=== PATIENT | male | born 1955 | race Caucasian/White ===

== ENCOUNTER → 2022-06-22 14:58 | Outpatient (BNVA) | payer MEDICARE, OTHER, SELFPAY | PROVIDERS: PCP Internal Medicine; Visit Provider Internal Medicine | DX: R10.12 Left upper quadrant pain (principal); K86.1 Other chronic pancreatitis; G90.9 Disorder of the autonomic nervous system, unspecified; F43.10 Post-traumatic stress disorder, unspecified | CPT/HCPCS: 99202 ==

== ENCOUNTER 2022-07-08 06:10 | Outpatient (REF) | payer MEDICARE, OTHER, SELFPAY | END 2022-07-08 06:11 | disposition home or self-care (01) | LOC: CF 06:10 | PROVIDERS: Visit Provider Internal Medicine | DX: G90.9 Disorder of the autonomic nervous system, unspecified (principal); K86.1 Other chronic pancreatitis; F43.10 Post-traumatic stress disorder, unspecified | CPT/HCPCS: 64510; J1100 ==

== ENCOUNTER → 2022-08-07 09:56 | Outpatient (BNVA) | payer MEDICARE, OTHER, SELFPAY | PROVIDERS: PCP Internal Medicine; Visit Provider Internal Medicine | DX: M54.16 Radiculopathy, lumbar region (principal) | CPT/HCPCS: 99212 ==

== ENCOUNTER 2022-08-12 06:14 | Outpatient (REF) | payer MEDICARE, OTHER, SELFPAY ==
--- NOTE | ~2022-08-12 | FL_ITS ---
EXAMINATION: XR FLUOROSCOPY WITH IMAGES CLINICAL INFORMATION: Disorder of the autonomic nervous system, unspecified. COMPARISON: None available. TECHNIQUE: Fluoroscopy Supervised By: Dr. Ricci. Fluoroscopy Time: 0.6 minutes. Cumulative Dose: 15.6 mGy. DAP: Gycm2. Images: 6. FINDINGS: Images demonstrate probe placement and contrast injection adjacent to the right lateral L3, L4 and L5 vertebrae. FL/FL guidance in treatment room IMPRESSION: Fluoroscopy guidance for pain management procedure.
== END 2022-08-12 06:15 | disposition home or self-care (01) ==
LOC: CF 06:14
PROVIDERS: Visit Provider Internal Medicine
DX: G90.9 Disorder of the autonomic nervous system, unspecified (principal); M54.16 Radiculopathy, lumbar region
CPT/HCPCS: 64483; 64484; J1100

== ENCOUNTER 2022-09-18 09:33 | Outpatient (AMB) | payer MEDICARE, OTHER, SELFPAY ==
[2022-09-18 09:47] VITALS: BP 120/70; PULSE 68; RESP 16; O2SAT 96; BMI 30.5
--- NOTE | 2022-09-18 09:47 | MHC.OFFVIS ---
Intake Vital Signs 09/18/22 09:47 Height 5 ft 10 in Weight 212 lb 8 oz BMI 30.5 BP 120/70 Blood Pressure Location Lt brachial Position Sitting Respiration 16 Pulse 68 Pulse Source Pulse Oximeter Pulse Oximetry (%) 96 Oxygen Delivery Method Room Air Intake Visit Reasons: s/p Right L2-L3, L3-L4 TFESI Allergies shellfish derived Adverse Reaction (Severe, Verified 09/18/22 09:46) n/v HPI s/p Right L2-L3, L3-L4 TFESI HPI Details 67-year-old male presenting today for a status post right L2-L3, L3-L4 TFESI. He reports 90% relief in his back and leg symptoms on the right side. He is continuing to walk on a rubber surface as well as continuing core strengthening exercises. He is planning on starting to swim as well. In terms of his autonomic symptoms, he reports that his sweating episodes have decreased from 6 per night to 2 per night since the stellate ganglion block. His abdominal pain has improved and he is no longer debilitated. Overall he is quite pleased with his current status. Past procedures: 08/12/22: Transforaminal epidural steroid injection, Right L3/4, L4/5: 90% relief. 07/08/2022: Ultrasound Guided Stellate Ganglion Block, Left: Significant reduction in facial and upper extremity dysautonomic symptoms. PFSH Medical History Abnormal cardiovascular stress test Basal cell carcinoma of left lower leg Benign prostatic hyperplasia without lower urinary tract symptoms Chronic pancreatitis Depression Diverticulitis Elevated TSH Generalized anxiety disorder History of actinic keratoses History of basal cell carcinoma History of dysplastic nevus Hyperlipidemia Major depressive disorder, recurrent severe without psychotic features Papilloma of oral cavity PTSD (post-traumatic stress disorder) Sciatica, left side Skin lesion of left lower limb Snoring Special screening for malignant neoplasms, colon Vegan diet Review of Systems Const All systems reviewed & are unremarkable except as noted in HPI and below Physical Exam Vital Signs: Last Vital Signs Pulse 68 09/18/22 09:47 Resp 16 09/18/22 09:47 BP 120/70 09/18/22 09:47 Pulse Ox 96 09/18/22 09:47 Oxygen Delivery Method Room Air 09/18/22 09:47 BMI result Body Mass Index 30.5 General: Appears afebrile. Alert and oriented. Mood and affect appropriate. Follows and participates in conversation appropriately. Respiratory effort is unlabored. Able to transition from sit to stand unassisted. Ambulates with bilaterally normal heel strike and toe off. Results Reviewed Results Reviewed: No imaging is available for review. Assessment & Plan Assessment & Plan (1) Lumbar radiculopathy: Code(s): M54.16 - Radiculopathy, lumbar region (2) Autonomic dysfunction: Code(s): G90.9 - Disorder of the autonomic nervous system, unspecified (3) PTSD (post-traumatic stress disorder): Code(s): F43.10 - Post-traumatic stress disorder, unspecified Plan 1. Continue home exercise program with core stretching and strengthening as tolerated for lumbar radicular symptoms. Follow-up for repeat injection as needed. 2. We will plan to repeat stellate ganglion block if and when his autonomic symptoms worsen again. If his abdominal symptoms worsen, we can consider celiac plexus block. But at this time I am leaning towards repeating stellate ganglion block as needed given significant improvement in his autonomic symptoms since that injection. Scribed for Dr. Ricci by Petr Desai, medical billing specialist, on 09/18/2022. I, Dr. Ricci, have personally reviewed and agree with the information entered by the scribe. Coding Level of Care Code Est Pt Level 3 (50527) Diagnoses Lumbar radiculopathy M54.16 Autonomic dysfunction G90.9 PTSD (post-traumatic stress disorder) F43.10
== END 2022-09-18 10:25 | disposition home or self-care (01) ==
PROVIDERS: PCP Internal Medicine; Visit Provider Internal Medicine
DX: M54.16 Radiculopathy, lumbar region (principal); G90.9 Disorder of the autonomic nervous system, unspecified; F43.10 Post-traumatic stress disorder, unspecified
CPT/HCPCS: 99213

== ENCOUNTER → 2022-09-18 09:33 | Outpatient (BNVA) | payer MEDICARE, OTHER, SELFPAY | PROVIDERS: PCP Internal Medicine; Visit Provider Internal Medicine | DX: M54.16 Radiculopathy, lumbar region (principal); G90.9 Disorder of the autonomic nervous system, unspecified; F43.10 Post-traumatic stress disorder, unspecified | CPT/HCPCS: 99212 ==

== ENCOUNTER 2024-08-24 10:56 | Outpatient (AMB) | payer MEDICARE, OTHER, SELFPAY ==
--- NOTE | 2024-08-24 11:04 | MHC.OFFVIS ---
Intake Visit Reasons: results Allergies shellfish derived Adverse Reaction (Severe, Verified 09/18/22 09:46) n/v HPI Comments Details: 69 yo man with left side thorax area sharp pain since about 2020 suggestive of a radiculapathy. THere was no rash or blisters. There was no h/o trauma triggering it. But he had played football in young age and had injured his mid back. He said that around the time this pain started, he was getting vaccines for Covid and Shingles, in 2019. This pain was there all the time but less so during the day. It could get so bad that he did want to live with it. It was waking him up at night. He also has mild MARICHUY and could not sleep on his back due to it. [facility] Medical History (Updated 08/24/24 @ 11:13 by Ovidio Garcia MD) Hypothyroidism Peroneal neuropathy Tarsal tunnel syndrome Peripheral neuropathy Chronic pancreatitis Diverticulitis Vegan diet Basal cell carcinoma of left lower leg Snoring Abnormal cardiovascular stress test Benign prostatic hyperplasia without lower urinary tract symptoms Elevated TSH Major depressive disorder, recurrent severe without psychotic features PTSD (post-traumatic stress disorder) Generalized anxiety disorder History of actinic keratoses Papilloma of oral cavity Skin lesion of left lower limb History of dysplastic nevus History of basal cell carcinoma Depression Hyperlipidemia Special screening for malignant neoplasms, colon Sciatica, left side Social History (Updated 08/23/24 @ 14:12 by Crissy Fuchs MA) Patient Tobacco Use Status: Current everyday Tobacco user Physical Exam Neuro Other: Mental Status: Alert and oriented to person, place, and time. Normal attention. Normal spontaneous speech, fluency, and comprehension. No obvious issues with mood and memory. Affect is appropriate. Cranial Nerves: CN II: Visual almazan full to confrontation, visual acuity intact. CN III, IV, : Pupils equal, round, reactive to light and accommodation. Extraocular movements are normal. CN V: Facial sensation is normal. CN VII: Facial movements symmetrical. CN VIII: Hearing intact to bedside conversation is normal. CN IX, X: Palate elevates symmetrically. CN XI: Shoulder shrug and head turn symmetrical. CN XII: Tongue midline without atrophy or fasciculations. Motor: Bulk and tone normal in all extremities. No significant muscle weakness in arms and legs. No drift. Reflexes: Deep tendon reflexes 2+ and symmetric. Plantar response down-going bilaterally. Coordination: Mafcnk-ez-csgv and gwde-ci-xwuk testing normal. No dysmetria. Gait and Station: No obvious gait abnormality. No ataxia or instability. Sensory: Intact to light touch, pinprick, and vibration. Romberg is negative. Extrapyramidal: Full facial expressions and blinking. No rigidity. Movements are appropriate with no tremor or abnormality. Speech: Normal; no dysarthria or tremor. Assessment & Plan Assessment & Plan (1) Thoracic radiculitis: Comment: Meds Tried: Gabapentin MRI T spine WO at [facility] in July 2024: Mild DJD, and multilevel foraminal stenoses Code(s): M54.14 - Radiculopathy, thoracic region Category: Medical (2) Peroneal neuropathy: Comment: EMG/NCS at [facility] in Sep 2015: Mild to mod b/l distal tibial neuropathy across TT, mild b/l peroneal neuropathy. Code(s): G57.30 - Lesion of lateral popliteal nerve, unspecified lower limb Category: Medical Qualifiers: Laterality: unspecified laterality Qualified Code(s): G57.30 - Lesion of lateral popliteal nerve, unspecified lower limb (3) Tibial neuropathy, bilateral: Code(s): G57.43 - Lesion of medial popliteal nerve, bilateral lower limbs Category: Medical Plan Left-sided midthoracic area neuralgia type of pain syndrome likely related to spondylitic changes in spine. He was educated about it and was advised to try tizanidine 1 dose at night. Medications: New tizanidine 2 mg PO BEDTIME PRN 30 caps 0RF muscle spasticity 30 days Coding Level of Care Code Est Pt Level 4 (12469) Diagnoses Thoracic radiculitis M54.14 Peroneal neuropathy, unspecified laterality G57.30 Laterality: unspecified laterality Tibial neuropathy, bilateral G57.43
--- OUTSIDE RECORDS SUMMARY | 2024-08-24 11:46 | XMS_ITS | Clinical Summary ---
Author Organization [facility] Address [address] [place] [address] Care Team Providers Care Electrode Cleaning Machine Operator Name Role Phone Nate Anaya MD Primary Care Provider [phone] Allergies No known active allergies Medications Medication Sig Dispensed Refills Start Date End Date Status albuterol (ProAir HFA) 108 (90 Base) MCG/ACT inhaler Inhale into the lungs. 0 05/29/2015 Active hydrOXYzine (ATARAX) 25 MG tablet Take 25 mg by mouth 3 (three) times a day as needed. for anxiety 0 05/19/2021 Active simvastatin (ZOCOR) tablet 20 mg Take 20 mg by mouth every night at bedtime. 0 06/05/2021 Active terbinafine (LamiSIL) 250 MG tablet Take 250 mg by mouth daily. 0 07/03/2021 Active Active Problems Problem Noted Date Diagnosed Date Night sweats 08/01/2021 Abdominal discomfort in left flank 08/01/2021 Family History Medical History Relation Name Comments Cancer Maternal Uncle Heart disease Mother Relation Name Status Comments Father Maternal Uncle Mother Social History Tobacco Use Types Packs/Day Years Used Date Smoking Tobacco: Former Cigarettes Q uit: 11/22/2020 Smokeless Tobacco: Never Comments:quit 11/2020 Alcohol Use Standard Drinks/Week Comments Not Currently 0 (1 standard drink = 0.6 oz pur e alcohol) Sex and Gender Information Value Date Recorded Sex Assigned at Not on file Gender Identity Not on file Sexual Orientation Not on file Job Start Date Occupation Industry Not on file Not on file Not on file Last Filed Vital Signs Vital Sign Reading Time Taken Comments Blood Pressure 113/74 08/01/2021 2:19 PM EDT Pulse 63 08/01/2021 2:19 PM EDT Temperature 36.7 C (98.1 F) 08/01/2021 2:19 PM EDT Respiratory Rate - - Oxygen Saturation 97% 08/01/2021 2:1 9 PM EDT Inhaled Oxygen Concentration - - Weight 94 kg (207 lb 3.2 oz) 08/01/2021 2:19 PM EDT Height 177.8 cm (5' 10 ) 08/01/2021 2:1 9 PM EDT patient preffered with shoes Body Mass Index 29.73 08/01/2021 2:19 PM EDT Plan of Treatment Health Maintenance Due Date Last Done Comments Hepatitis C Screening 1957 Depression Screening 1969 Preventative Health Evaluation 06/05/1975 Colon Cancer Screening (Colonoscopy) 2002 DTap / Tdap / Td (2 - Td or Tdap) 03/16/2021 03/16/2011 Fall Risk Assessment 2022 Pneumococcal Vaccine (1 of 1 - PCV) 2022 COVID-19 Vaccine (4 - season) 2023 12/11/2020, 05/19/2020, 04/28/2020 Influenza Vaccine (Season Ended) 2024 11/27/2020, 12/12/2018, 11/16/2017, Additional history exists RSV Adult > 60+ Yrs or (1 - 1-dose 75+ series) 2032 Shingrix-Zoster Vaccine Completed 03/14/2021, 12/11 Hepatitis B Vaccines Aged Out No long er eligible based on patient's age to complete this topic RSV Ped < 20 months Aged Out No longe r eligible based on patient's age to complete this topic Care Teams Electrode Cleaning Machine Operator Relationship Specialty Start Date End Date Nate Anaya MD PCP - General Internal Medicine 06/05/21
== END 2024-08-24 11:16 | disposition home or self-care (01) ==
LOC: HO.HSM 10:57
PROVIDERS: PCP Internal Medicine; Visit Provider Psychiatry & Neurology Neurology
DX: M54.14 Radiculopathy, thoracic region (principal); G57.30 Lesion of lateral popliteal nerve, unspecified lower limb; G57.43 Lesion of medial popliteal nerve, bilateral lower limbs
CPT/HCPCS: 99214

== ENCOUNTER → 2024-08-24 10:56 | Outpatient (BNVA) | payer MEDICARE, OTHER, SELFPAY | PROVIDERS: PCP Internal Medicine; Visit Provider Psychiatry & Neurology Neurology | DX: M54.14 Radiculopathy, thoracic region (principal); G57.30 Lesion of lateral popliteal nerve, unspecified lower limb; G57.43 Lesion of medial popliteal nerve, bilateral lower limbs | CPT/HCPCS: 99212 ==

== ENCOUNTER 2024-12-07 11:29 | Outpatient (AMB) | payer MEDICARE, OTHER, SELFPAY ==
--- NOTE | 2024-12-07 11:30 | MHC.OFFVIS ---
Intake Visit Reasons: 3m/radiculopathy Allergies shellfish derived Adverse Reaction (Severe, Verified 09/18/22 09:46) n/v HPI Comments Details: 69 yo man, under stress from his 's dementia, has been treated for chronic urticaria, was seen for left side thorax area sharp pain since about 2020 suggestive of a radiculapathy. He is presenting with complaints of persistent itching and gastrointestinal discomfort. The onset of the itching coincided with either a COVID-19 vaccination or infection, leading to self-treatment with diphenhydramine initially and subsequent management with hydroxyzine for three years. Upon discontinuation, the patient experienced a resurgence of symptoms, now improved. Gastrointestinal issues focus on inflammation sans H. pylori infection, potentially linked to dietary habits, such as high coffee intake. Stress related to familial issues, particularly a spouse's dementia, is noted as a possible contributory factor. [facility] Medical History (Updated 12/07/24 @ 11:36 by Ovidio Garcia MD) Hypothyroidism Peroneal neuropathy Tarsal tunnel syndrome Peripheral neuropathy Chronic pancreatitis Diverticulitis Vegan diet Basal cell carcinoma of left lower leg Snoring Abnormal cardiovascular stress test Benign prostatic hyperplasia without lower urinary tract symptoms Elevated TSH Major depressive disorder, recurrent severe without psychotic features PTSD (post-traumatic stress disorder) Generalized anxiety disorder History of actinic keratoses Papilloma of oral cavity Skin lesion of left lower limb History of dysplastic nevus History of basal cell carcinoma Depression Hyperlipidemia Special screening for malignant neoplasms, colon Sciatica, left side Social History (Updated 08/23/24 @ 14:12 by Crissy Fuchs MA) Patient Tobacco Use Status: Current everyday Tobacco user Review of Systems Const Details: - Monitor for exacerbation of itching and gastrointestinal discomfort. - Reduce coffee intake and observe any improvement in gastrointestinal symptoms. - Be mindful of stress levels, especially related to caregiving for a spouse with dementia. - Return for further evaluation if symptoms do not improve or worsen. Physical Exam Neuro Other: Mental Status: Alert and oriented to person, place, and time. Normal attention. Normal spontaneous speech, fluency, and comprehension. No obvious issues with mood and memory. Affect is appropriate. Cranial Nerves: CN II: Visual almazan full to confrontation, visual acuity intact. CN III, IV, : Pupils equal, round, reactive to light and accommodation. Extraocular movements are normal. CN V: Facial sensation is normal. CN VII: Facial movements symmetrical. CN VIII: Hearing intact to bedside conversation is normal. CN IX, X: Palate elevates symmetrically. CN XI: Shoulder shrug and head turn symmetrical. CN XII: Tongue midline without atrophy or fasciculations. Extrapyramidal: Full facial expressions and blinking. No rigidity. Movements are appropriate with no tremor or abnormality. Speech: Normal; no dysarthria or tremor. Assessment & Plan Assessment & Plan (1) Thoracic radiculitis: Comment: Meds Tried: Gabapentin, hydroxyzine, MRI T spine WO at [facility] in July 2024: Mild DJD, and multilevel foraminal stenoses Code(s): M54.14 - Radiculopathy, thoracic region Category: Medical Plan 69 years old man under stress from his 's illness, chronic urticaria, which apparently started after COVID, treated with hydroxyzine, was here for chronic left midthoracic radicular type of pain syndrome. At this time, after stopping hydroxyzine, he was feeling better though symptoms were not completely resolved. He was reassured and educated and no medicine was prescribed at this time. Coding Level of Care Code Est Pt Level 4 (67998) Diagnoses Thoracic radiculitis M54.14
--- OUTSIDE RECORDS SUMMARY | 2024-12-07 14:00 | XMS_ITS | Encounter Summary ---
Author Organization [facility] Address [address] [place] [address] Care Team Providers Care Golf Cart Mechanic Name Role Phone Nate Anaya MD Primary Care Provider [phone] Reason for Visit * Therapy (Routine) - Authorized Specialty Diagnoses / Procedures Referred By Contac t Referred To Contact Pulmonology Diagnoses Chronic cough Wheezing Procedures Pulmonary function testing: Carbon Monoxide Diffusing Capacity, Flow Volume Loop, Helium Dilution Lung Volumes, Nitrogen Wash Out, Spirometry with Bronchodilator, Vital Capacity Test, Spirometry Rikki He MD [address] [place] [phone] Phone: tel: fax: Pulmonology [address] [phone] Phone: tel: fax: Referral ID Status Reason Start Date Expiration Date V isits Requested Visits Authorized [id number] Authorized 11/02/2024 11/02/2025 1 1 Encounter Details Date Type Department Care Team ([facility] st Contact Info) Description 12/07/2024 2:00 PM EDT Ancillary Procedure Pulmonology [address] [phone] Chronic cough; Wheezing Social History Tobacco Use Types Packs/Day Years Used Date Smoking Tobacco: Former Cigarettes Q uit: 11/22/2021 Smokeless Tobacco: Never Alcohol Use Standard Drinks/Week Comments No 0 (1 standard drink = 0.6 oz pur e alcohol) Housing Instability Answer Date Recorde d Are you worried that in the next 2 months you may not have stable housing? No 12/23/2023 Food Access & Nutrition Answer Date Rec orded Do you have access to a vari ety of food including fruits and vegetables? Yes 12/23/2023 Access to Healthcare Answer Date Record ed Within the last 3 months, ho w many times did you visit the emergency department for your medical care? 0 12/23/2023 Health Literacy Answer Date Recorded How often do you need to hav e someone help you when you read instructions, pamphlets, or other written material from your doctor or pharmacy? Never 12/23/2023 Caregiver: How often do you need to have someone help you when you read instructions, pamphlets, or other written material from your doctor or pharmacy? Not on file 12/23/2023 Financial Risk Answer Date Recorded How hard is it for you to pa y for the very basics like food, housing, medical care, and air conditioning / heating? Not very hard 12/23/2023 Transportation Answer Date Recorded Has the lack of transportati on kept you from meetings, work, or from getting things needed for daily living? No Has the lack of transportati on kept you from medical appointments or from getting medications? No 12/23/2023 Social Isolation Answer Date Recorded How often do you feel lonely or isolated from th ose around you? Never 12/23/2023 Food Risk Answer Date Recorded Within the past 12 months we worried whether our food would run out before we got money to buy more. Never true 12/23/2023 Within the past 12 months th e food we bought just didn't last and we didn't have money to get more. Never true 12/23/2023 Dependent Care Answer Date Recorded Do you need help finding or paying for care for your loved ones. For example, childcare teacher or elderly care for an older adult? No 12/23/2023 Education Answer Date Recorded Do you think completing more education or training, like finishing a GED, going to college, or learning a trade, would be helpful for you? No 12/23/2023 Employment and Income Answer Date Recor ded During the last four weeks, have you been actively looking for work? No 12/23/2023 Living Situation Answer Date Recorded What is your living situation? Unrecognized valu e 12/23/2023 Sex and Gender Information Value Date Recorded Sex Assigned at Not on file Legal Sex Male 2:02 PM EST Gender Identity Male 12/23/2023 1:19 PM EDT Sexual Orientation Straight 12/23/2023 1: 19 PM EDT documented as of this encounter Progress Notes * Tee Hidalgo - 12/07/2024 2:00 PM EDT PFT performed documented in this encounter Plan of Treatment Upcoming Encounters Date Type Department Care Team (Late st Contact Info) Description 01/11/2025 4:30 PM EST Office Visit Adult Medicine [address] [phone] Nate Anaya MD [address] [place] [address] documented as of this encounter Visit Diagnoses Diagnosis Chronic cough Cough Wheezing documented in this encounter Orders PFT Count Last Ordered Date First Orde red Date PULMONARY FUNCTION TESTING 1 12/07/2024 documented in this encounter Additional Health Concerns Assessment Noted Time PHQ-9 Depression Total Score: 3 12/23/19 24 1:39 PM EDT documented as of this encounter Care Teams Golf Cart Mechanic Relationship Specialty Start Date End Date Nate Anaya MD [address] [place] [address] PCP - General Internal Medicine 12/28/23 documented as of this encounter
--- OUTSIDE RECORDS SUMMARY | 2024-12-07 14:48 | XMS_ITS | Encounter Summary ---
Author Organization [facility] Address [address] [facility] [address] [place] [phone] Phone Care Team Providers Care Product Applications Engineer Name Role Phone Pcp, Unknown Primary Care Provider Unavailabl e Encounter Details Date Type Department Care Team (Late st Contact Info) Description 08/19/2023 Transcribe Orders [facility] [address] [place] [address] Keely Desir, [facility] [address] [facility], [facility] [address] [place] [address] [email or web address] Social History Tobacco Use Types Packs/Day Years Used Date Smoking Tobacco: Never Assessed Education Answer Date Recorded Are you interested in more education? Not on mariza e 08/19/2023 Are you concerned about learning? Not on file 08/19/2023 No 08/19/2023 No 08/19/2023 Digital Access Answer Date Recorded No 08/19/2023 No 08/19/2023 Reliable internet access at home? Not on file 08/19/2023 Device with a working camera? Not on file Sex and Gender Information Value Date Recorded Sex Assigned at Not on file Legal Sex Male 12:12 PM EDT Gender Identity Not on file Sexual Orientation Not on file documented as of this encounter Plan of Treatment Not on file documented as of this encounter Visit Diagnoses Not on filedocumented in this encounter Care Teams Product Applications Engineer Relationship Specialty Start Date End Date Pcp, Unknown PCP - General 08/19/23 documented as of this encounter Additional Source Comments The information contained in this document represents components of the legal health record. It is not the complete legal health record.[facility]
--- OUTSIDE RECORDS SUMMARY | 2024-12-07 14:48 | XMS_ITS ---
Author Name [facility] Organization Unknown Care Team Organization Name Specialty Phone Email Start Date End Da te [facility] ACO 10/11/2024 [facility] 02/03/202309/22
--- OUTSIDE RECORDS SUMMARY | 2024-12-07 14:48 | XMS_ITS | Clinical Summary ---
Author Organization [facility] Address [address] [place] [phone] Phone Care Team Providers Care Double Bass Player Name Role Phone Pcp, Unknown Primary Care Provider Unavailabl e Social History Tobacco Use Types Packs/Day Years [...] on file Sexual Orientation Not on file Plan of Treatment Not on file Medical Devices Not on file Insurance MED[place] PART A [place] [id number] [facility] MEDICARE SUPPLEMENT MEDICARE PART A & B [facility] [employer] MEDICARE SUPPLEMENT MEDICARE PART A & B [facility] MEDICARE SUPPLEMENT MEDICARE PART A & B [facility] MEDICARE SUPPLEMENT MEDICARE PART A & B Member Subscriber Plan / Payer (Ef fective 2022-Present) Name:Etienne Calderón Member ID:[id number] Relation to Subscriber:Self Name:Stephane Etienne Subscriber ID:[id number] Payer ID:[id number] Group ID:Not on file Type:Medicare Address: [employer] [address] [employer] MEDICARE SUPPLEMENT MEDICARE PART A & B [facility] [employer]TENSION MEDICARE SUPPLEMENT Care Teams Double Bass Player Relationship Specialty Start Date End Date Pcp, Unknown PCP - General 08/19/23 Additional Source Comments The information contained in this document represents components of the legal health record. It is not the complete legal health record.[facility]
--- OUTSIDE RECORDS SUMMARY | 2024-12-07 14:49 | XMS_ITS | Clinical Summary ---
Author Organization [facility] Address [address] [place] [address] Care Team Providers Care Director [employer] Name Role Phone Nate Anaya MD Primary Care Provider [phone] Allergies No known active allergies Medications Medication [...] PCV) 2022 COVID-19 Vaccine (4 - season) 2024 12/11/2020, 05/19/2020, 04/28/2020 Influenza Vaccine (#1) 2024 , 12/12/2018, 11/16/2017, Additional history exists RSV Adult > 60+ Yrs or (1 - 1-dose 75+ series) 2032 Shingrix-Zoster Vaccine Completed 03/14/2021, 12/11 Hepatitis B Vaccines Aged Out No long er eligible based on patient's age to complete this topic RSV Ped < 20 months Aged Out No longe r eligible based on patient's age to complete this topic Care Teams Director [employer] Relationship Specialty Start Date End Date Nate Anaya MD PCP - General Internal Medicine 06/05/21
--- OUTSIDE RECORDS SUMMARY | 2024-12-07 14:49 | XMS_ITS | Clinical Summary ---
Author Organization [address] Address [address] [place] [phone] Phone Care Team Providers Care Pilot Plant Research Technician Name Role Phone Nate Anaya MD Primary Care Provider [phone] Allergies Active Allergy Reactions Criticality Noted Date Comments Fish Derived 11/02/2024 Shellfish Derived Nausea And Vomiting 2 Medications levocetirizine (XYZAL) 5 mg tablet ONE TAB DAILY MAY TAKE UP TO THREE TIMES A DAY IF NEEDED *MAX 1 TAB DAILY 4 Active levothyroxine (SYNTHROID, LEVOTHROID) 50 mcg tabletIndication s:Hypothyroidism , unspecified TAKE 1 TABLET DAILY WEDNESDAY- Y. TAKE 2 TABLETS WEDNESDAY. TOTAL OF 8 TABS/WEEK 102 tablet 3 5 Active simvastatin (ZOCOR) 20 mg tablet TAKE 1 TABLET (20 MG TOTAL) BY MOUTH AT BEDTIME. AT BEDTIME. 90 tablet 1 5 Active albuterol HFA (ProAir HFA) 90 mcg/actuation inhalerIndicatio ns:Upper respiratory tract infection, unspecified type Inhale 2 puffs by mouth every 4 (four) hours if needed for wheezing or shortness of breath. 8.5 g 5 10/17/19 26 Active Active Problems Problem Noted Date Diagnosed Date Hypothyroidism 08/06/2022 Diverticulosis 06/09/2021 Overview (12/06/2023): Seen on CT Abdomen 04/2021 Chronic pancreatitis ([facility] V24, [facility] V28) 06/09/2021 Overview (12/06/2023): Seen on CT of the abdomen April 2021. Basal cell carcinoma of left lower leg 0 Snoring 01/17/2018 Overview (12/06/2023): 12/2017 Home Sleep Study did not reveal sleep apnea. 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 Skin lesion of left lower limb 03/16/2011 Depression 11/07/2010 Hyperlipidemia 01/12/2010 Backache 01/09/2008 Overview (12/06/2023): IMO update Encounters Date Type Department Care Team Description 12/07/2024 2:00 PM EDT Ancillary Procedure Pulmonology - [place] [address] [phone] Chronic cough; Wheezing 11/02/2024 1:00 PM EDT Office Visit Pulmonology [address] [phone] Rikki He MD MARICHUY (obstructive sleep apnea) (Primary Dx); Chronic cough; Wheezing 11/02/2024 Telephone Pulmonology [address] [phone] Kasie Mckenna MA 10/16/2024 1:21 PM EDT - 10/16/2024 11:59 PM EDT [facility] [address] [place] [phone] Discharge Disposition: Home or Self Care 10/16/2024 1:15 PM EDT Office Visit Walk-In Clinic [facility] [address] [place] [phone] Jered Martins, SHAY Upper respiratory tract infection, unspecified type (Primary Dx); Productive cough 10/16/2024 Nurse Triage Adult Medicine [address] [phone] Nate Anaya MD from Last 3 Months Immunizations Immunization Administration Dates Next Due Influenza Quadravalent, MDCK , 0.5ml, preservative free (Flucelvax) 6mo and older 12/25/2021,11/17/2019 Influenza Quadravalent, MDCK , 0.5ml, with preservative (Flucelvax) 6mo and older 11/16/2017 Influenza trivalent, 0.5mL ( Fluad) 65yo and older 12/08/2022,12/12/2018,02/08/2015,2013,01/09/2013 Influenza trivalent, 0.5mL ( Fluzone High-dose) 65yo and older 10/20/2024 Influenza trivalent, 0.5mL, preservative free (Fluarix; FluLaval; Fluzone) ages 6mo and older (Afluria) 3 years and older 11/27/2020 Influenza, Unspecified 11/04/2023,12/25/2021 Moderna SARS-CoV-2 COVID-19, mRNA, LNP-S, preservative free 11/04/2023 Pfizer (ages 12 & older) Biv alent, COVID-19 11/07/2021 Pneumococcal conjugate 20 va lent (Prevnar 20, PCV 20) 2mo and older 08/06/2022 RSV, bivalent, protein subun it RSVpreF, 0.5mL, Preservative Free (Arexvy) 50yo and older 01/21/2023 Tdap Tetanus diptheria acell ular pertussis (Boostrix; Adacel) 7yo and older 04/07/2022,03/16/2011 Zoster recombinant (Shingrix ) 19yo and older 03/14/2021,12/11/2020 Surgical History Surgery Date Site/Laterality Comments COLONOSCOPY 05/04/2008 PROCEDURE: IL COLONOSCOPY FLX DX W/COLLJ SPEC WHEN PFRMD; COMMENT: Normal APPENDECTOMY PROCEDURE: HISTORICAL APPENDECTOMY TONSILLECTOMY PROCEDURE: HISTORICAL TONSILLECTOMY NECK SURGERY PROCEDURE: HISTORICAL NECK SURGERY; COMMENT: exploration for a bulge in neck, muscular OTHER SURGICAL HISTORY PROCEDURE: IL EXCISION MAL LESION TRUNK/ARM/LEG 0.6-1.0 CM MOLE REMOVAL PROCEDURE: HISTORICAL MOLE (REMOVAL OF); COMMENT: Dysplastic nevus 01/02 back (mild atypia) OTHER SURGICAL HISTORY PROCEDURE: HISTORICAL CA BASAL CELL; COMMENT: BCC 06/11 left pretibial area (superficial and sclerosing) 01/04 left shoulder (superficial) 01/02 left foot (superficial) Medical History Medical History Date Comments Backache, unspecified 01/09/2008 DX:Backach e, unspecified Tobacco abuse 01/09/2008 DX:Tobacco abuse Special screening for malign ant neoplasms, colon 05/04/2008 DX:Special screening for mal ignant neoplasms, colon; COMMENT: Negative colonoscopy 05/04/2008, no colon cancer screening needed for 10 years. Hyperlipidemia 01/12/2010 DX:Hyperlipidemi a Depression 11/07/2010 DX:Depression History of basal cell carcinoma 01/14/2011 DX:History of basal cell carcinoma; COMMENT: BCC 06/11 left pretibial area (superficial and sclerosing) 01/04 left shoulder (superficial) 01/02 left foot (superficial) History of dysplastic nevus 01/14/2011 DX:H istory of dysplastic nevus; COMMENT: Dysplastic nevus 01/02 back (mild atypia) History of actinic keratoses 02/07/2015 DX: History of actinic keratoses; COMMENT: Actinic keratosis Mast cell disorder DX:Mast cell disorder Joint pain DX:Joint pain Family History Medical History Relation Name Comments CABG Father parkinsons; dec eased Hypertension Mother Other Dermatological Disorders Mother description of scars suggest non-melanotic cutaneous malignancies on her face ..... specifics unknown Esophageal cancer Uncle mother Relation Name Status Comments Father Mother Uncle Social History Tobacco Use Types Packs/Day Years Used Date Smoking Tobacco: Former Cigarettes Q uit: 11/22/2021 Smokeless Tobacco: Never Tobacco Cessation:Counseling Given: Not Answered Alcohol Use Standard Drinks/Week Comments No 0 [...] care for your loved ones. For example, child care sitter or elderly care for an older adult? [...] Orientation Straight 12/23/2023 1: 19 PM EDT Obstetrics History Last Filed Vital Signs Vital Sign Reading Time Taken Comments Blood Pressure 104/73 11/02/2024 1:14 PM EDT Pulse 68 11/02/2024 1:14 PM EDT Temperature 36.1 C (97 F) 10/16/2024 1:09 PM EDT Respiratory Rate 20 11/02/2024 1:14 PM EDT Oxygen Saturation 98% 11/02/2024 1:14 PM EDT Inhaled Oxygen Concentration - - Weight 90.7 kg (200 lb) 11/02/2024 1:14 PM EDT Height 180.3 cm (5' 11 ) 11/02/2024 1:14 PM EDT Body Mass Index 27.89 11/02/2024 1:14 PM EDT Plan of Treatment Upcoming Encounters Date Type Department Care Team (Late st Contact Info) Description 01/11/2025 4:30 PM EST Office Visit Adult Medicine [address] [phone] Nate Anaya MD [address] [place] [phone] Health Maintenance Due Date Last Done Comments Medicare Annual Wellness Visit 01/31/2022 Falls Risk Assessment 2022 Depression Screening 02/23/2024 12/23/2023, 06/03/19 24 COVID-19 Vaccine ( season) 2024 11/04/2023, 11/13/2022, 11/07/2021, Additional history exists Social Influencers of Health Screening 12/22/2024 12/23/2023 Lung Cancer Screening (Low Dose CT) 08/14/2025 08/14/2024, 08/06/2023, 08/10/2022, Additional history exists Cholesterol Screening (Lipid Panel) 05/29/2029 05/29/2024, 06/03/2023 Colorectal Cancer Screening: Colonoscopy 07/19/2031 07/18/2021 DTaP,Tdap,and Td Vaccines (3 - Td or Tdap) 04/07/2032 04/07/2022, 03/16/2011 Zoster Vaccines Completed 03/14/2021, 12/11/2020 Hepatitis C Screening Completed 05/12/2021 Pneumococcal Vaccine: 50+ Years Completed 08/06/2022 RSV Immunization Adult Patients Completed 01/21/2023 Abdominal Aortic Aneurysm (AAA) Screen Completed 02/10/2023, 02/10/2023 Influenza Vaccine Completed 10/20/2024, , 12/08/2022, Additional history exists HIB Vaccines Aged Out No longer eligi ble based on patient's age to complete this topic HPV Vaccines Aged Out No longer eligi ble based on patient's age to complete this topic Hepatitis A Vaccines Aged Out No long er eligible based on patient's age to complete this topic Hepatitis B Vaccines Aged Out No long er eligible based on patient's age to complete this topic IPV Vaccines Aged Out No longer eligi ble based on patient's age to complete this topic MMR Vaccines Aged Out No longer eligi ble based on patient's age to complete this topic Meningococcal ACWY Vaccine Aged Out N o longer eligible based on patient's age to complete this topic Meningococcal B Vaccine Aged Out No l onger eligible based on patient's age to complete this topic RSV Immunization Patients Under 20 months Aged Out No longer eligible based on patient's age to complete this topic Varicella Vaccines Aged Out No longer eligible based on patient's age to complete this topic Procedures Procedure Name Priority Date/Time Associated Diagnosis Comments XR CHEST 2 VIEWS STAT 10/16/2024 1:26 PM EDT Productive cough CT LUNG SCREENING Routine 08/14/2024 7:4 0 AM EDT Encounter for screening for malignant neoplasm of respiratory organs Personal history of nicotine dependence LIPID PANEL WITH REFLEX TO DIRECT LDL Routine 05/29/2024 9:04 AM EDT Pure hypercholesterolemia HM DEPRESSION SCREENING Routine 06/03/2023 US ABDOMINAL AORTA REAL TIME SCREEN STUDY AAA Routine 02/10/2023 8:04 AM EST Encounter for screening for cardiovascular disorders COLONOSCOPY Routine 07/18/2021 HEPATITIS C SCREENING Routine 05/12/2021 from Last 3 Months or Most Recently Relevant to Health Maintenance Results * XR Chest 2 Views (10/16/2024 1:26 PM EDT) Anatomical Region Laterality Modality Body Radiographic Hue ging 10/16/2024 1:37 PM EDT Impressions 10/16/2024 1:40 PM EDT No evidence of an acute chest process. POS - [id number] -------- FINAL REPORT -------- Dictated By: Sonja Miller Dictated Date: 10/16/2024 13:37 ET Assigned Physician: Sonaj Miller Reviewed and Electronically Signed By: Sonja Miller Signed Date: 10/16/2024 13:40 ET Workstation ID: [id number] Transcribed By: Self Edit Transcribed Date: 10/16/2024 13:37 ET Narrative 10/16/2024 1:40 PM EDT EXAM: Chest x-ray HISTORY: Shortness of breath for 8 days with productive cough. COMPARISON: 01/05/2023 FINDINGS: PA and lateral views of the chest were performed. No focal infiltrate, pleural effusion, or evidence of pulmonary edema. Heart is not enlarged. Mediastinal contours are stable. Mild degenerative changes in the spine. Procedure Note Sonja Miller MD - 10/16/2024 EXAM: Chest x-ray HISTORY: Shortness of breath for 8 days with productive cough. COMPARISON: 01/05/2023 FINDINGS: PA and lateral views of the chest were performed. No focal infiltrate, pleural effusion, or evidence of pulmonary edema.Heart is not enlarged. Mediastinal contours are stable. Mild degenerativechanges in the spine. IMPRESSION: No evidence of an acute chest process. POS - [id number] -------- FINAL REPORT -------- Dictated By: Sonja Miller Dictated Date: 10/16/2024 13:37 ET Assigned Physician: Sonja Miller Reviewed and Electronically Signed By: Sonja Miller Signed Date: 10/16/2024 13:40 ET Workstation ID: [id number] Transcribed By: Self Edit Transcribed Date: 10/16/2024 13:37 ET Jered Martins NP IMG XR PROCEDURES Final Resul t * CT Lung Screening (08/14/2024 7:40 AM EDT) Anatomical Region Laterality Modality Chest Computed Tomogra phy 08/14/2024 6:57 PM EDT Impressions 08/14/2024 7:23 PM EDT No suspicious pulmonary nodule. ASSESSMENT: LungRADS Category2: Benign Appearance/Behavior - Continue annual screening with LDCT in 12 months Complete Lung RADS description including probabilities of malignancy and prevalence can be found at: [employer] Committee on Lung-RADS?. Lung- RADS Assessment Categories 2021. Available at [email or web address]/-/[email or web address]. LungRADS v2022. Assessment Categories Release date: December 2021 Category 0: Incomplete - Additional lung cancer screening CT images and/or comparison with prior CT is needed. - Prior chest CT(s) being located for comparison. - Part or all of the lungs cannot be evaluated. -Findings suggestive of an infectious or inflammatory process. (1-3 month LDCT) Category 1: Negative - Continue annual screening with LDCT in 12 months - No lung nodules - Nodule(s) with specific calcifications (complete, central, popcorn, concentric rings) and fat containing nodules Category 2: Benign Appearance/Behavior - Continue annual screening with LDCT in 12 months -Juxtapleural nodule measuring <10mm AND Solid; smooth margins; oval or triangular shape -Solid nodule < 6 mm or new solid nodule < 4 mm. - Part solid nodule(s) < 6 mm total diameter on baseline screening. - Ground glass nodule < 30 mm or > 30 mm and unchanged or slowly growing. - Category 3 unchanged for at least 6 months; Category 4 nodules proved benign Category 3: Probably Benign - 6 month LDCT - Solid nodule(s) > 6 to < 8 mm at baseline OR new 4 mm to < 6 mm. - Part solid nodule(s) > 6 mm total diameter with solid component < 6 mm OR new < 6 mm total diameter. - Ground glass nodule > [address] or new. Category 4A: Suspicious - 3 month LDCT; PET/CT may be used when there is ? 8 mm solid component - Solid nodule(s) > 8 to < 15 mm at baseline OR growing < 8 mm OR new 6 to < 8 mm. - Part solid nodule(s) > 6 mm with solid component > 6 mm to < 8 mm OR with a new or growing < 4 mm solid component. - Endobronchial nodule. Category 4B: Suspicious - Chest CT with or without contrast, PET/CT and/or tissue sampling depending on the probability of malignancy and comorbidities. PET/CT may be used when there is a > 8 mm solid component. - Solid nodule(s) > 15 mm OR new or growing and > 8 mm - Part solid nodule(s) with a solid component ? 8 mm OR a new or growing ? 4 mm solid component Category 4X: Suspicious - Chest CT with or without contrast, PET/CT and/or tissue sampling depending on the probability of malignancy and comorbidities. PET/CT may be used when there is a ? 8 mm solid component. - Category 3 or 4 nodules with additional features or imaging findings that increases the suspicion of malignancy. Category S: Clinically Significant or Potentially Clinically Significant Findings (non lung cancer) Category C: Modifier for patients with a prior diagnosis of lung cancer who return to screening -------- FINAL REPORT -------- Dictated By: Kentrell Ornelas Dictated Date: 08/14/2024 18:57 ET Assigned Physician: Kentrell Ornelas Reviewed and Electronically Signed By: Kentrell rOnelas Signed Date: 08/14/2024 19:23 ET Workstation ID: [id number] Transcribed By: Self Edit Transcribed Date: 08/14/2024 18:57 ET Narrative 08/14/2024 7:23 PM EDT History: 69 year-old 39.75 pack-year for smoker, asymptomatic, for lung cancer screening. 5 years since stopped Comparison: 08/06/2023 Technique: Helical volumetric imaging of the thorax was performed, using low- dose technique, without IV contrast. DLP: 189 mGy/cm CT dose reduction technique utilized with one or more of the following: Automated exposure control and/or adjustment of the mA and/or kV according to patient size and/or use of iterative reconstruction technique. Findings: Lungs: No evidence of focal pulmonary airspace disease. 3 mm nodule in the right upper lobe unchanged. No spacious nodules. Pleura: There are no pleural effusions. No calcified or noncalcified pleural plaques. Mediastinum: No mass. Vascular calcifications. Upper Abdomen: This study was performed without contrast and with lower than standard dose. These factors reduce the sensitivity for detection of small lesions in the upper abdomen. Small retroperitoneal nodes on the left. Osseous Structures: No suspicious osseous abnormalities. Procedure Note Kentrell Ornelas MD - 08/14/2024 History: 69 year-old 39.75 pack-year for smoker, asymptomatic, for lungcancer screening. 5 years since stopped Comparison: 08/06/2023 Technique: Helical volumetric imaging of the thorax was performed, usinglow-dose technique, without IV contrast. DLP: 189 mGy/cm CT dose reduction technique utilized with one or more of the following:Automated exposure control and/or adjustment of the mA and/or kV accordingto patient size and/or use of iterative reconstruction technique. Findings: Lungs: No evidence of focal pulmonary airspace disease. 3 mm nodule inthe right upper lobe unchanged. No spacious nodules. Pleura: There are no pleural effusions. No calcified or noncalcifiedpleural plaques. Mediastinum: No mass. Vascular calcifications. Upper Abdomen: This study was performed without contrast and with lowerthan standard dose. These factors reduce the sensitivity for detection ofsmall lesions in the upper abdomen. Small retroperitoneal nodes on theleft. Osseous Structures: No suspicious osseous abnormalities. IMPRESSION: No suspicious pulmonary nodule. ASSESSMENT: LungRADS Category2: Benign Appearance/Behavior - Continue annual screeningwith LDCT in 12 months Complete Lung RADS description including probabilities of malignancy andprevalence can be found at: [employer] Committee onLung-RADS?. Lung-RADS Assessment Categories 2021. Available [email or web address]/-/[email or web address]. LungRADS v2022. Assessment Categories Release date: December 2021 Category 0: Incomplete - Additional lung cancer screening CT images and/orcomparison with prior CT is needed. - Prior chest CT(s) being located for comparison. - Part or all of the lungs cannot be evaluated. -Findings suggestive of an infectious or inflammatory process. (1-3 monthLDCT) Category 1: Negative - Continue annual screening with LDCT in 12 months - No lung nodules - Nodule(s) with specific calcifications (complete, central, popcorn,concentric rings) and fat containing nodules Category 2: Benign Appearance/Behavior - Continue annual screening withLDCT in 12 months -Juxtapleural nodule measuring <10mm AND Solid; smooth margins; oval ortriangular shape -Solid nodule < 6 mm or new solid nodule < 4 mm. - Part solid nodule(s) < 6 mm total diameter on baseline screening. - Ground glass nodule < 30 mm or > 30 mm and unchanged or slowlygrowing. - Category 3 unchanged for at least 6 months; Category 4 nodules provedbenign Category 3: Probably Benign - 6 month LDCT - Solid nodule(s) > 6 to < 8 mm at baseline OR new 4 mm to < 6 mm. - Part solid nodule(s) > 6 mm total diameter with solid component < 6 mmOR new < 6 mm total diameter. - Ground glass nodule > [address] or new. Category 4A: Suspicious - 3 month LDCT; PET/CT may be used when there is ?8 mm solid component - Solid nodule(s) > 8 to < 15 mm at baseline OR growing < 8 mm OR new 6 to< 8 mm. - Part solid nodule(s) > 6 mm with solid component > 6 mm to < 8 mm ORwith a new or growing < 4 mm solid component. - Endobronchial nodule. Category 4B: Suspicious - Chest CT with or without contrast, PET/CT and/ortissue sampling depending on the probability of malignancy andcomorbidities. PET/CT may be used when there is a > 8 mm solidcomponent. - Solid nodule(s) > 15 mm OR new or growing and > 8 mm - Part solid nodule(s) with a solid component ? 8 mm OR a new or growing ?4 mm solid component Category 4X: Suspicious - Chest CT with or without contrast, PET/CT and/ortissue sampling depending on the probability of malignancy andcomorbidities. PET/CT may be used when there is a ? 8 mm solidcomponent. - Category 3 or 4 nodules with additional features or imaging findingsthat increases the suspicion of malignancy. Category S: Clinically Significant or Potentially Clinically SignificantFindings (non lung cancer) Category C: Modifier for patients with a prior diagnosis of lung cancerwho return to screening -------- FINAL REPORT -------- Dictated By: Kentrell Ornelas Dictated Date: 08/14/2024 18:57 ET Assigned Physician: Kentrell Ornelas Reviewed and Electronically Signed By: Kentrell Ornelas Signed Date: 08/14/2024 19:23 ET Workstation ID: [id number] Transcribed By: Self Edit Transcribed Date: 08/14/2024 18:57 ET Westley Aly MD IM CT PROCEDURES Final Result * (ABNORMAL) Lipid panel with reflex to direct LDL (05/29/2024 9:04 AM EDT) Cholesterol 194 0 - 200 mg/dL LAB CHEMISTRY METHOD 05/29/2024 1:18 PM [facility] Triglycerides 172(H) 0 - 150 mg/dL LAB CHEMISTRY METHOD 05/29/2024 1:18 PM [facility] HDL 42 >=40 mg/dL LAB CHEMISTRY METHOD 05/29/2024 1:18 PM [facility] LDL Calculated 118(H) 0 - 100 mg/dL LAB CHEMISTRY METHOD 05/29/2024 1:18 PM [facility] VLDL Cholesterol Terence 34.4 mg/dL LAB CHEMISTRY METHOD 05/29/2024 1:18 PM [facility] Non HDL Chol. (LDL+VLDL) 152(H) <145 mg/dL LAB CHEMISTRY METHOD 05/29/2024 1:18 PM [facility] Chol/HDL Ratio 4.6(H) 0.0 - 4.4 LAB CHEMISTRY METHOD 05/29/2024 1:18 PM [facility] Blood Venous blood specimen / Unknown Venipuncture / Unknown 05/29/2024 9:04 AM EDT 05/29/2024 9:04 AM EDT Nate Anaya MD LAB BLOOD ORDERABLES Final Resu lt [facility] [address] [place] [address], [place] [phone] * Depression Screening (06/03/2023) Pathologist [facility] Depression Screening abstracted [facility] Final Result * ABDOMINAL AORTA REAL TIME SCREEN STUDY AAA (02/10/2023 8:04 AM EST) Anatomical Region Laterality Modality Ultrasound 12/23/2022 7:37 AM EDT Narrative 02/10/2023 10:36 AM EST Ultrasound of the abdominal aorta. History screening for AAA. No prior studies are available for comparison. There is no evidence of AAA. Proximal aorta measures 2.8 cm, mid aorta measures 2.1 cm, distal aorta measures 1.8 cm. Proximal common iliac arteries measure 1.1 cm on each side. CONCLUSIONS: No evidence of AAA. Procedure Note Blossom Smyth MD - 03/30/2023 Ultrasound of the abdominal aorta. History screening for AAA. No prior studies are available for comparison. There is no evidence of AAA. Proximal aorta measures 2.8 cm, mid aortameasures 2.1 cm, distal aorta measures 1.8 cm. Proximal common iliac arteries measure 1.1 cm oneach side. CONCLUSIONS: No evidence of AAA. us Nate Anaya MD [facility] PROCEDURES Final Result * Colonoscopy (07/18/2021) Pathologist [facility] Colonoscopy normal, abstracted Anatomical Region Laterality Modality Other Vanessa Muir MD HEALTH MAINTENANCE Final Result * Hepatitis C Screening (05/12/2021) Pathologist [facility] Hepatitis C Screening abstracted Vanessa Muir MD HEALTH MAINTENANCE Final Result from Last 3 Months or Most Recently Relevant to Health Maintenance Insurance * Guarantor: Devin Gamboa Account Type Relation to Patient Date of Phone Billing Address Personal/Family Self 1955 [phone] (Work) [address] [facility] [address] [place] [address] MEDICARE [facility] Care Teams [employer] Research Technician Relationship Specialty Start Date End Date Nate Anaya MD [address] [place] [phone] PCP - General Internal Medicine 12/28/23
--- OUTSIDE RECORDS SUMMARY | 2024-12-07 14:49 | XMS_ITS ---
Author Organization [address] Address [address] [place] [phone] Phone Care Team Providers Care Frame Stylist Name Role Phone Nate Anaya MD Primary Care Provider [phone] Active Problems Problem Noted Date Diagnosed Date Hypothyroidism 08/06/2022 Diverticulosis 06/09/2021 Overview (12/06/2023): Seen on CT Abdomen 04/2021 Chronic pancreatitis (CMS/HCC V24, CMS/HCC V28) 06/09/2021 Overview (12/06/2023): Seen on CT of the abdomen April 2021. Basal cell carcinoma of left lower leg 0 Snoring 01/17/2018 Overview (12/06/2023): 12/2017 Home Sleep Study did not reveal sleep apnea. 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 Past Treatment and Therapy Plans No past plan information found. Lifetime Dose Tracking * Chemical Lifetime Dose Automatic Entry Manual Entr y Radiation (DLP) 188.52 mGy-cm 188.52 mGy-cm 0 mGy-cm CTDIvol 4.89 mGy 4.89 mGy 0 mGy
== END 2024-12-07 16:08 | disposition home or self-care (01) ==
LOC: HO.HSM 11:29
PROVIDERS: PCP Internal Medicine; Visit Provider Psychiatry & Neurology Neurology
DX: M54.14 Radiculopathy, thoracic region (principal)
CPT/HCPCS: 99214

== ENCOUNTER → 2024-12-07 11:29 | Outpatient (BNVA) | payer MEDICARE, OTHER, SELFPAY | PROVIDERS: PCP Internal Medicine; Visit Provider Psychiatry & Neurology Neurology | DX: M54.14 Radiculopathy, thoracic region (principal) | CPT/HCPCS: 99212 ==